=== PATIENT | female | born 2000 | race American Indian/Alaskan Native ===

== ENCOUNTER 2020-11-24 14:49 | Outpatient (CLI) | payer OTHER | END 2020-11-24 14:56 | disposition home or self-care (01) | LOC: APU 14:49 → TRG 14:49 | DX: O26.891 Other specified pregnancy related conditions, first trimester (principal); Z67.21 Type B blood, Rh negative; Z3A.08 8 weeks gestation of pregnancy | CPT/HCPCS: 86850; 86900; 86901; 96372; J2790 ==